=== PATIENT | female | born 1960 | race Caucasian/White ===

== ENCOUNTER → 2016-09-05 | Outpatient (CLI) | payer BC ==
[~2016-09-05] MED LIST: ANTIVERT 25MG25 MG PO; COUMADIN 5MG5 MG/TAB PO; KLONOPIN 0.5MG0.5 MG PO; LOVENOX 8080 MG/0.8 SQ; MOTRIN50 MG PO; MULTIPLE VITAMI1 CAP PO; NORCO 325 MG-51 TAB PO; PREMARIN 0.60.625 M1 PO; XARELTO20 MG PO; ZOFRAN ODT4 MG PO
== END ==
LOC: MC.RAD 14:32
DX: Z12.31 Encounter for screening mammogram for malignant neoplasm of breast (principal)